=== PATIENT | female | born 1970 | race Caucasian/White ===

== ENCOUNTER → 2022-10-11 | Outpatient (CLI) | payer OTHER ==
--- NOTE | 2022-10-12 18:31 | CT ---
EXAMINATION TYPE: CT orbits wo/w con CT DLP: 890.9 mGycm, Automated exposure control for dose reduction was used. DATE OF EXAM: 10/11/2022 3:29 PM COMPARISON: None. 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 IV, no oral contrast was utilized. Findings: Orbital Contents: * Globes: Normal. * Preseptal Tissues: Normal. * Intraconal Structures: Normal. * Extraconal Structures and Lacrimal Glands: Normal. * Orbital Crowheart: Normal. Sella Turcica and Cavernous Sinuses: The sella turcica and cavernous sinus regions are intact and sym metric. Visualized Brain Parenchyma: Normal. Paranasal Sinuses and Surrounding Structures: The paranasal sinuses are intact. The mastoid air cells and skull base is intact. Other: Soft tissues are within normal limits. No evidence for intracranial aneurysm. The intracranial vasculature is patent. No abnormal postcontrast enhancement. IMPRESSION: No evidence of orbital irregularity or mass. The orbits and globes appear symmetric. No abnormal postcontrast enhancement.
== END | disposition home or self-care (01) ==
LOC: RADCTMAIN 14:58
PROVIDERS: ATTEND Ophthalmology
DX: G44.219 Episodic tension-type headache, not intractable (principal)
CPT/HCPCS: 70482; Q9967